=== PATIENT | male | born 1980 | race Caucasian/White ===

== ENCOUNTER 2019-09-09 16:34 | Emergency (ER) | payer SELFPAY ==
[~2019-09-09] VITALS: Ht 175.3 cm; Wt 63.5 kg
[2019-09-09] MEDS ORDERED: KETOROLAC TROMETH 60MG/2ML VIAL IM ONE (18:00)
[2019-09-09 19:46] VITALS: BP 108/71
== END 2019-09-09 19:47 | disposition home or self-care (01) ==
LOC: ER 16:34
DX: S33.5XXA Sprain of ligaments of lumbar spine, initial encounter (principal); X58.XXXA Exposure to other specified factors, initial encounter; Y93.89 Activity, other specified; Y99.8 Other external cause status; Y92.89 Other specified places as the place of occurrence of the external cause
CPT/HCPCS: 72100; 96372; 99283; J1885